=== PATIENT | female | born 1990 | race Two or more races ===

== ENCOUNTER 2018-02-21 23:07 | Emergency (ER) | payer MEDICAID ==
[~2018-02-21] VITALS: Ht 162.6 cm; Wt 104.3 kg
[~2018-02-21 23:07] MED LIST: AURALGAN OTIC1 DROP BOTH EARS; CORTISPORIN EAR10 ML LEFT EAR; NKM
[2018-02-21 23:15] VITALS: BP 139/91
[2018-02-21] MEDS ORDERED: PSEUDOEPHEDRINE60 MG PO (23:38)
[2018-02-21] MEDS ORDERED: BENADRYL25 MG ORAL (23:38)
[2018-02-21] MEDS ORDERED: AMOXICILLIN500 MG ORAL (23:38)
--- NOTE | 2018-02-21 23:38 | Emergency Room Report ---
History of Present Illness General Chief Complaint: Allergic Reaction Source: Patient Present Illness HPI Is a 27-year-old female with a history of anxiety and also idiopathic urticaria. It seemed to be worse when she gets anxious. She presents with chief complaint of allergic reaction. She was complaining of left ear pain and placed on Flonase. His been ongoing for about a day or 2. Now her eyelids were swollen and the right lower lip is slightly swollen. No respiratory complaint. No wheezing. No skin itching. She thinks it may be allergic to Flonase. Allergies: Coded Allergies: No Known Allergies (Unverified , 04/10/14) Patient History Past Medical History: see triage record, old chart reviewed Past Surgical History: none Pertinent Family History: none Social History: Denies: smoking Last Menstrual Period: 02/04/2018 Now: No Immunizations: other Reviewed Nursing Documentation: PMH: Agreed; PSxH: Agreed Nursing Documentation-PMH Past Medical History: No Stated History Review of Systems Eye: Denies: eye pain, blurred vision ENT: Reports: ear pain; Denies: nose congestion, throat swelling Respiratory: Denies: cough, shortness of breath Cardiovascular: Denies: chest pain, palpitations Gastrointestinal: Denies: abdominal pain, diarrhea, nausea, vomiting Musculoskeletal: Denies: back pain, joint pain Skin: Denies: rash Neurological: Denies: headache, numbness Endocrine: Denies: increased thirst, increased urine Hematologic/Lymphatic: Denies: easy bruising All Other Systems: negative except mentioned in HPI Physical Exam Vital Signs Date Time Temp Pulse Resp B/P (MAP) Pulse Ox O2 Delivery O2 Flow Rate FiO2 02/21/18 23:09 98.5 100 16 139/91 98 98.4 02/21/18 23:15 Room Air vitals normal. Sp02 EP Interpretation: reviewed, normal General Appearance: well appearing, no apparent distress, alert Head: normocephalic, atraumatic Eyes: bilateral eye PERRL, bilateral eye EOMI, bilateral eye other - puffiness of lids ENT: hearing grossly normal, normal pharynx, other - mild edema to right lower lip Neck: full range of motion, supple, no meningismus Respiratory: chest non-tender, lungs clear, normal breath sounds Cardiovascular #1: regular rate, rhythm, no murmur Gastrointestinal: normal bowel sounds, non tender, no mass, no organomegaly, no bruit, non-distended Musculoskeletal: back normal, gait/station normal, normal range of motion Psychiatric: mood/affect normal Skin: warm/dry Medical Decision Making Diagnostic Impression: Primary Impression: Urticaria Additional Impression: Otitis media Qualified Codes: H66.002 - Acute suppurative otitis media without spontaneous rupture of ear drum, left ear ER Course Patient has an otitis media. She does have some edema to her eyelids. This could be a viral infection versus her urticaria. No rest or issue. No anaphylaxis. No angioedema of the tongue. I gave her Benadryl here and we'll discharge home with antibiotics. Last Vital Signs Date Time Temp Pulse Resp B/P (MAP) Pulse Ox O2 Delivery O2 Flow Rate FiO2 02/21/18 23:15 98.4 100 16 139/91 98 Room Air 98.4 Status: improved Disposition: HOME, SELF-CARE Condition: Stable Scripts Pseudoephedrine Hcl* (SUDAFED*) 60 Mg Tablet 60 MG PO Q6H, #30 TAB Prov: JUANA KOEHLER M.D. 02/21/18 Amoxicillin* (AMOXIL*) 500 Mg Capsule 500 MG ORAL THREE TIMES A DAY, #21 CAP Prov: JUANA KOEHLER M.D. 02/21/18 Diphenhydramine Hcl* (BENADRYL*) 25 Mg Capsule 50 MG ORAL Q6H PRN for Itching, #30 CAP Prov: JUANA KOEHLER M.D. 02/21/18 Additional Instructions: Follow-up your doctor in 7 days. Return if symptom worsen. JUANA KOEHLER M.D. Feb 21, 2018 23:38
[2018-02-21 23:45] VITALS: BP 139/91
== END 2018-02-21 23:45 | disposition home or self-care (01) ==
LOC: EMR 23:25
DX: L50.9 Urticaria, unspecified (principal); H66.92 Otitis media, unspecified, left ear
CPT/HCPCS: 99284

== ENCOUNTER 2019-08-16 21:00 | Emergency (ER) | payer MEDICAID ==
[~2019-08-16] VITALS: Ht 165.1 cm; Wt 106.6 kg
[~2019-08-16 21:00] MED LIST changes: +AMOXICILLIN500 MG ORAL; +BENADRYL25 MG ORAL; +NAPROXEN500 M2 ORAL; +PSEUDOEPHEDRINE60 MG PO
[2019-08-16 21:06] VITALS: BP 140/79
--- NOTE | 2019-08-16 21:13 | NUR ---
ED Nurse Note: Walk-in patient with complaints of nausea vomitting x 1 day. unknown status. Patient voided and urine collected. Will continue to monitor.
[2019-08-16 22:26] LABS: BILIRUBIN, URINE NEGATIVE (NEGATIVE); COLOR,URINE PALE YELLOW; GLUCOSE, URINE (UA) NEGATIVE (NEGATIVE); KETONES,URINE 1+ (NEGATIVE); LEUKOCYTE ESTERASE ,URINE NEGATIVE (NEGATIVE); NITRITE,URINE NEGATIVE (NEGATIVE); PH,URINE 7 (4.5-8.0); PROTEIN,URINE NEGATIVE (NEGATIVE); UROBILINOGEN,URINE NORMAL MG/DL (0.0-1.0)
[2019-08-16] MEDS ORDERED: ONDANSETRON ODT4 MG BC (22:30)
[2019-08-16 22:31] LABS: APPEARANCE,URINE CLEAR
--- NOTE | 2019-08-16 22:31 | Emergency Room Report ---
History of Present Illness General Chief Complaint: Nausea, Vomiting, and Diarrhea Source: Patient Present Illness [facility] This is a 29-year-old female with no past medical history she presents with complaint of nausea and vomiting. It intermittently for last 2 days. Her last menstruation was June 19. She has irregular menstruation. No abdominal pain or vaginal bleeding. No urinary complaint. She is sexually active and unprotected sex. Never been before. Allergies: Coded Allergies: No Known Allergies (Unverified , 04/10/14) Patient History Past Medical History: see triage record, old chart reviewed Past Surgical History: none Pertinent Family History: none Social History: Denies: smoking Last Menstrual Period: 06/23/19 : 0 Para: 0 Immunizations: other Reviewed Nursing Documentation: PMH: Agreed; PSxH: Agreed Nursing Documentation-PMH Past Medical History: No Stated History Hx Cardiac Problems: No Hx Hypertension: No Hx Pacemaker: No Hx Asthma: No Hx COPD: No Hx Diabetes: No Hx Cancer: No Hx Gastrointestinal Problems: No Hx Dialysis: No History Of Psychiatric Problem: No Hx Neurological Problems: No Hx Cerebrovascular Accident: No Hx Seizures: No Review of Systems Eye: Denies: eye pain, blurred vision ENT: Denies: ear pain, nose congestion, throat swelling Respiratory: Denies: cough, shortness of breath Cardiovascular: Denies: chest pain, palpitations Gastrointestinal: Reports: nausea, vomiting; Denies: abdominal pain, diarrhea Musculoskeletal: Denies: back pain, joint pain Skin: Denies: rash Neurological: Denies: headache, numbness Endocrine: Denies: increased thirst, increased urine Hematologic/Lymphatic: Denies: easy bruising All Other Systems: negative except mentioned in HPI Physical Exam Vital Signs Date Time Temp Pulse Resp B/P (MAP) Pulse Ox O2 Delivery O2 Flow Rate FiO2 08/16/19 21:05 98.8 114 20 140/79 (99) 97 Room Air Vitals unremarkable Sp02 EP Interpretation: reviewed, normal General Appearance: well appearing, no apparent distress, alert Head: normocephalic, atraumatic Eyes: bilateral eye PERRL, bilateral eye EOMI ENT: hearing grossly normal, normal pharynx Neck: full range of motion, supple, no meningismus Respiratory: chest non-tender, lungs clear, normal breath sounds Cardiovascular #1: regular rate, rhythm, no murmur Gastrointestinal: normal bowel sounds, non tender, no mass, no organomegaly, no bruit, non-distended Musculoskeletal: back normal, normal range of motion, gait/station normal Psychiatric: mood/affect normal Medical Decision Making Diagnostic Impression: Primary Impression: Qualified Codes: Z3A.08 - 8 weeks gestation of ER Course Patient presents with occasional nausea and vomiting from . Patient had dates she is about 8 weeks. She does not plan on keeping this . She has no pain no bleeding to warrant an emergent ultrasound. Will discharge home with follow-up with [facility]. Last Vital Signs Date Time Temp Pulse Resp B/P (MAP) Pulse Ox O2 Delivery O2 Flow Rate FiO2 08/16/19 21:06 98.8 79 20 140/79 97 Room Air Status: improved Disposition: HOME, SELF-CARE Condition: Stable Scripts Ondansetron Odt* (ZOFRAN ODT*) 4 Mg Tab.rapdis 4 MG BC EVERY 6 HOURS PRN for Nausea & Vomiting, #30 TAB 0 Refills Prov: Truman Brown MD 08/16/19 Referrals: [facility] (PCP) Additional Instructions: Follow-up with your doctor in 7 days. You can also follow-up with [facility]. Return for abdominal pain or vaginal bleeding. Return if symptoms worsen. Truman Brown MD Aug 16, 2019 22:31
[2019-08-16 22:40] VITALS: BP 140/79
--- NOTE | 2019-08-16 22:40 | NUR ---
ED Nurse Note: Patient cleared for discharge by ERMD. Patient departed with all belongings.
== END 2019-08-16 22:40 | disposition home or self-care (01) ==
LOC: EMR 21:40
DX: O21.9 Vomiting of pregnancy, unspecified (principal); Z3A.08 8 weeks gestation of pregnancy
CPT/HCPCS: 81003; 81025; Z7502; 99282

== ENCOUNTER 2019-11-09 12:35 | Emergency (ER) | payer MEDICAID ==
[~2019-11-09] VITALS: Ht 165.1 cm; Wt 110.7 kg
[~2019-11-09 12:35] MED LIST changes: +ONDANSETRON ODT4 MG BC
--- NOTE | 2019-11-09 12:50 | NUR ---
ED Nurse Note: patient walked into ED from home, states patient is 20 weeks , this is her first . patient c/p sharp pain on the lower abdomen as well as back pain, vaginal spotting intermittently since 10/31/19. patient also reports coughing as well. patient is alert awake x4 ambulatory steady gait, breathing unlabored and even, speaking in full sentences. patient on a hospital gown.
[2019-11-09 13:10] LABS: APPEARANCE,URINE CLEAR; BILIRUBIN, URINE NEGATIVE (NEGATIVE); COLOR,URINE PALE YELLOW; GLUCOSE, URINE (UA) 2+ (NEGATIVE); KETONES,URINE NEGATIVE (NEGATIVE); LEUKOCYTE ESTERASE ,URINE NEGATIVE (NEGATIVE); NITRITE,URINE POSITIVE (NEGATIVE); PH,URINE 6 (4.5-8.0); PROTEIN,URINE NEGATIVE (NEGATIVE); UROBILINOGEN,URINE NORMAL MG/DL (0.0-1.0)
--- NOTE | 2019-11-09 13:15 | NUR ---
ED Nurse Note: patient taken to U/S
[2019-11-09 13:46] LABS: HEMATOCRIT 38.1 % (37.0-47.0); HEMOGLOBIN 13.2 G/DL (12.0-16.0); MEAN CORPUSCULAR VOLUME 87 FL (80-99); PLATELET COUNT 272 K/UL (150-450); RED BLOOD COUNT 4.38 M/UL (4.20-5.40); RED CELL DISTRIBUTION WIDTH 11.3 % (11.6-14.8); WHITE BLOOD COUNT 11.5 K/UL (4.8-10.8)
[2019-11-09 13:56] LABS: ANION GAP 14 mmol/L (5-15); BLOOD UREA NITROGEN 6 mg/dL (7-18); CALCIUM 9.2 MG/DL (8.5-10.1); CARBON DIOXIDE 23 MMOL/L (21-32); CHLORIDE 101 MMOL/L (98-107); CREATININE 0.5 MG/DL (0.55-1.30); POTASSIUM 3.2 MMOL/L (3.5-5.1); SODIUM 137 MMOL/L (136-145)
[2019-11-09 14:00] LABS: ALANINE AMINOTRANSFERASE 27 U/L (12-78); ALBUMIN 3.1 G/DL (3.4-5.0); ALBUMIN/GLOBULIN RATIO 0.8 (1.0-2.7); ALKALINE PHOSPHATASE 78 U/L (46-116); ASPARTATE AMINO TRANSFERASE 21 U/L (15-37); BILIRUBIN,TOTAL 0.2 MG/DL (0.2-1.0)
--- NOTE | 2019-11-09 14:35 | Emergency Room Report ---
History of Present Illness General Chief Complaint: Complications Source: Patient Present Illness HPI 29-year-old female G1, P0 who reports being 20 weeks and morbidly obese , here complaining of 1 week of suprapubic pain and cramping as well as few episodes of vaginal spotting. Denies any vaginal clotting, urinary frequency and urgency. Denies fever and chills, syncope, chest pain shortness of breath. Has not taken medication for symptom relief. Last CHEMISTRY TEACHER visit was 10 days ago and within normal limits. Denies tobacco smoke, drug use alcohol intake. Denies recent travel. Denies leg swelling and calf tenderness. Denies pleuritic chest pain. Reports that she also has been having this cough for the past week on and off. Denies recent travel, fever and chills. Allergies: Coded Allergies: No Known Allergies (Unverified , 04/10/14) Patient History Past Medical History: see triage record Past Surgical History: none Pertinent Family History: none Now: Yes - 20 weeks Immunizations: UTD Reviewed Nursing Documentation: PMH: Agreed; PSxH: Agreed Nursing Documentation-PMH Past Medical History: No Stated History Hx Cardiac Problems: No Hx Hypertension: No Hx Pacemaker: No Hx Asthma: No Hx COPD: No Hx Diabetes: No Hx Cancer: No Hx Gastrointestinal Problems: No Hx Dialysis: No Hx Neurological Problems: No Hx Cerebrovascular Accident: No Hx Seizures: No Review of Systems All Other Systems: negative except mentioned in HPI Physical Exam Vital Signs Date Time Temp Pulse Resp B/P (MAP) Pulse Ox O2 Delivery O2 Flow Rate FiO2 11/09/19 12:43 99.5 128 22 149/91 (110) 94 Room Air Sp02 EP Interpretation: reviewed, normal General Appearance: alert, GCS 15, non-toxic, obese Head: normocephalic, atraumatic Eyes: bilateral eye normal inspection, bilateral eye PERRL ENT: hearing grossly normal, normal pharynx, no angioedema, normal voice Neck: full range of motion, supple, no bony tend, supple/symm/no masses Respiratory: chest non-tender, lungs clear, normal breath sounds, no rhonchi, no retraction, no wheezing, speaking full sentences Cardiovascular #1: regular rate, rhythm, no edema Gastrointestinal: soft, no mass, no organomegaly, no peritonitis, no bruit, no guarding, no hernia, no pulsatile mass Rectal: deferred Genitourinary: no CVA tenderness, ext genitalia/vag normal, os closed Musculoskeletal: back normal, no calf tenderness, pelvis stable, Laila's Sign negative Neurologic: alert, motor strength/tone normal, oriented x3, sensory intact, responsive, speech normal Psychiatric: judgement/insight normal, memory normal, mood/affect normal, no suicidal/homicidal ideation Skin: no rash, palpation normal, normal color, warm/dry Lymphatic: no adenopathy Medical Decision Making PA Attestation All my diagnosis and treatment plans were reviewed ad discussed with my supervising physician Dr. Carvajal Diagnostic Impression: Primary Impression: Abdominal pain during Additional Impression: UTI (urinary tract infection) during ER Course 29-year-old female G1, P0 who reports being 20 weeks and morbidly obese , here complaining of 1 week of suprapubic pain and cramping as well as few episodes of vaginal spotting. Denies any vaginal clotting, urinary frequency and urgency. Denies fever and chills, syncope, chest pain shortness of breath. Has not taken medication for symptom relief. Last CHEMISTRY TEACHER visit was 10 days ago and within normal limits. Denies tobacco smoke, drug use alcohol intake. Denies recent travel. Denies leg swelling and calf tenderness. Denies pleuritic chest pain. Reports that she also has been having this cough for the past week on and off. Denies recent travel, fever and chills. Ddx considered but are not limited to: UTI, pyelonephritis, urinary incontinence , prolapsed bladder, ectopic , term , abdominal pain during Vital signs: are WNL, pt. is afebrile H&PE are most consistent with: Abdominal pain during , UTI during ORDERS: UA, urine cx, CBC, CMP, type and screen, beta-hCG, OB ultrasound, Keflex ED INTERVENTIONS: NS bolus, Zofran, Tylenol DISCHARGE: At this time pt. is stable for d/c to home. Will provide printed patient care instructions, and any necessary prescriptions. Care plan and follow up instructions have been discussed with the patient prior to discharge. Patient to follow-up with CHEMISTRY TEACHER in the next 24 to 48 hours, take medication as directed, if vaginal bleeding spotting return to the emergency room. CT/MRI/US Diagnostic Results CT/MRI/US Diagnostic Results : Imaging Test Ordered: OB ultrasound Impression Heart rate 171, IUP visualized, no subchorionic hemorrhage, no free fluid Last Vital Signs Date Time Temp Pulse Resp B/P (MAP) Pulse Ox O2 Delivery O2 Flow Rate FiO2 11/09/19 14:29 99.5 11/09/19 12:43 128 22 149/91 (110) 94 Room Air Status: improved Disposition: HOME, SELF-CARE Condition: Stable Scripts Cephalexin* (KEFLEX*) 500 Mg Capsule 500 MG ORAL EVERY 6 HOURS for 7 Days, #28 CAP Prov: Krystin Whelan 11/09/19 Patient Instructions: Abdominal Pain During , [id number], Urinary Tract Infection, [id number] Additional Instructions: Take medication as directed, follow-up with your CHEMISTRY TEACHER in 24 to 72 hours, if worsening abdominal pain, vaginal bleeding or spotting return to the emergency room. Krystin Whelan Nov 09, 2019 14:35
[2019-11-09] MEDS ORDERED: CEPHALEXIN500 MG ORAL (14:36)
[2019-11-09 14:47] VITALS: BP 142/82
--- NOTE | 2019-11-09 14:48 | Diagnostic Imaging Report ---
Indication: Pelvic pain and vaginal spotting, patient Technique: Grayscale and duplex images of the uterus and fetus with transabdominal and transvaginal scanner Comparison: none Findings: There is a single live intrauterine . Position is transverse. Positive heart activity, heart rate 171 bpm. There is an anterior fundal placenta, which clears the internal cervical os.. Cervix is closed, endocervical canal measures 5.4 cm in length. Amniotic fluid index is 10.2 cm Estimated gestational age by average of ultrasound measurements is 21 weeks 6 days. Estimated gestational age by dates is 19 weeks 5 days. Estimated date of delivery 03/15/2020. Due to early stage of , emergent nature of exam, as detailed assessment of anatomy not performed. Grossly normal spine, urinary bladder, stomach, cord insertion Impression: 21 weeks 6 day, by average of ultrasound measurements, single live intrauterine . No unusual features
--- NOTE | 2019-11-09 14:48 | NUR ---
ER DISCHARGE NOTE: Patient is cleared to be discharged per LYN SAUL, pt is aox4, on room air, with stable vital signs. pt was given dc and prescription instructions, pt was able to verbalize understanding, pt id band and iv site removed without complications. pt is able to ambulate with steady gait. pt took all belongings.
== END 2019-11-09 14:51 | disposition home or self-care (01) ==
LOC: EMR 14:32
DX: O23.42 Unspecified infection of urinary tract in pregnancy, second trimester (principal); O26.892 Other specified pregnancy related conditions, second trimester; R10.30 Lower abdominal pain, unspecified; O99.212 Obesity complicating pregnancy, second trimester; E66.01 Morbid (severe) obesity due to excess calories; Z3A.20 20 weeks gestation of pregnancy
CPT/HCPCS: 36415; 76805; 76817; 80053; 81003; 84702; 85007; 85025; 86850; 86900; 86901; 96361; 96374; J2405; J7030; Z7502; 99284

== ENCOUNTER 2019-11-11 21:10 | Emergency (ER) | payer MEDICAID ==
[~2019-11-11] VITALS: Ht 165.1 cm; Wt 110.7 kg
[~2019-11-11 21:10] MED LIST changes: +CEPHALEXIN500 MG ORAL
[2019-11-11] MEDS ORDERED: MICONAZOLE 3 K1 EACH VG (21:40)
--- NOTE | 2019-11-11 21:40 | NUR ---
ED Nurse Note: Patient presented to ER c/o vagina swelling and itching and burning upon urination x 2 days. Patient was seen and treated here at [facility] [place], prescribed keflex 500 mg 2 days ago. AAO x4, VSS at this time.Patient is 20 weeks preagnant.
--- NOTE | 2019-11-11 21:41 | Emergency Room Report ---
History of Present Illness General Chief Complaint: Female Urogenital Problems Source: Patient Present Illness HPI This is a 29-year-old female who is 20 weeks . She presents with chief complaint of vaginal itching and slight swelling ever since starting antibiotics. She was here 2 to 3 days ago. She had some vaginal spotting and had ultrasound it was unremarkable. She was told that she has urinary tract infection prescribed Keflex. After taking the Keflex she started having the symptoms. No fever chills but no nausea no vomiting. No dysuria frequency. Worse with urination. Slight whitish discharge. No bleeding. Has not take anything else for this. Allergies: Coded Allergies: No Known Allergies (Unverified , 04/10/14) Patient History Past Medical History: see triage record, old chart reviewed Past Surgical History: other Pertinent Family History: none Social History: Denies: smoking Now: Yes : 1 Immunizations: other Reviewed Nursing Documentation: PMH: Agreed; PSxH: Agreed Nursing Documentation-PMH Past Medical History: No Stated History Hx Cardiac Problems: No Hx Hypertension: No Hx Pacemaker: No Hx Asthma: No Hx COPD: No Hx Diabetes: No Hx Cancer: No Hx Gastrointestinal Problems: No Hx Dialysis: No Hx Neurological Problems: No Hx Cerebrovascular Accident: No Hx Seizures: No Review of Systems Eye: Denies: eye pain, blurred vision ENT: Denies: ear pain, nose congestion, throat swelling Respiratory: Denies: cough, shortness of breath Cardiovascular: Denies: chest pain, palpitations Gastrointestinal: Denies: abdominal pain, diarrhea, nausea, vomiting Genitourinary: Reports: discharge, pain Musculoskeletal: Denies: back pain, joint pain Skin: Denies: rash Neurological: Denies: headache, numbness Endocrine: Denies: increased thirst, increased urine Hematologic/Lymphatic: Denies: easy bruising All Other Systems: negative except mentioned in HPI Physical Exam Vital Signs Date Time Temp Pulse Resp B/P (MAP) Pulse Ox O2 Delivery O2 Flow Rate FiO2 11/11/19 21:21 97.5 100 18 106/72 (83) 95 Room Air Vitals normal. Sp02 EP Interpretation: reviewed, normal General Appearance: well appearing, no apparent distress, alert Head: normocephalic, atraumatic Eyes: bilateral eye PERRL, bilateral eye EOMI ENT: hearing grossly normal, normal pharynx Neck: full range of motion, supple, no meningismus Respiratory: chest non-tender, lungs clear, normal breath sounds Cardiovascular #1: regular rate, rhythm, no murmur Gastrointestinal: normal bowel sounds, non tender, no mass, no organomegaly, no bruit, non-distended, other - Gravid Musculoskeletal: back normal, normal range of motion, gait/station normal Psychiatric: mood/affect normal Medical Decision Making Diagnostic Impression: Primary Impression: Vaginitis affecting in second trimester, antepartum ER Course This patient presents with symptom of vaginitis. Most likely candidal since she has been taking antibiotics. No evidence of any bleeding. No evidence of any STDs. Will discharge home. Last Vital Signs Date Time Temp Pulse Resp B/P (MAP) Pulse Ox O2 Delivery O2 Flow Rate FiO2 11/11/19 21:21 97.5 100 18 106/72 (83) 95 Room Air Status: unchanged Disposition: HOME, SELF-CARE Condition: Stable Scripts Miconazole/Skin Cleanser No.17 (Miconazole 3 Kit) 1 Each Kit 1 EACH VG DAILY, #1 KIT Prov: Truman Brown MD 11/11/19 Patient Instructions: Vaginal Yeast Infection, Adult Additional Instructions: You can stop the antibiotics. Follow-up with in 7 days. return if symptoms worsen. Truman Brown MD Nov 11, 2019 21:41
[2019-11-11 21:48] VITALS: BP 106/72
[2019-11-11 21:52] VITALS: BP 106/72
--- NOTE | 2019-11-11 21:52 | NUR ---
ED Nurse Note: Pt cleared by health care Provider for discharge. DC instructions/prescription was given and explained to pt and verbalized understanding of teachings. All medical deviecs such as ID band removed. Pt is AAO x4, ambulatory and left with all personal belongings.
== END 2019-11-11 21:52 | disposition home or self-care (01) ==
LOC: EMR 21:50
DX: O23.592 Infection of other part of genital tract in pregnancy, second trimester (principal); Z3A.20 20 weeks gestation of pregnancy; N76.0 Acute vaginitis
CPT/HCPCS: 99281

== ENCOUNTER 2019-11-13 22:10 | Emergency (ER) | payer MEDICAID ==
[~2019-11-13] VITALS: Ht 165.1 cm; Wt 110.7 kg
[~2019-11-13 22:10] MED LIST changes: +MICONAZOLE 3 K1 EACH VG
--- NOTE | 2019-11-13 22:22 | NUR ---
ED Nurse Note: Walk-in patient with complaints of cough x 1 week and left ear plugged with pain.
[2019-11-13 22:23] VITALS: BP 117/78
--- NOTE | 2019-11-13 22:53 | NUR ---
ED Nurse Note: Patient ambulated to the restroom.
[2019-11-13] MEDS ORDERED: ZITHROMAX250 MG ORAL (23:05)
[2019-11-13 23:12] VITALS: BP 117/78
--- NOTE | 2019-11-13 23:12 | NUR ---
ER DISCHARGE NOTE: Patient is cleared to be discharged per ERMD, pt is aox4, on room air, with stable vital signs. pt was given dc and prescription instructions, pt was able to verbalize understanding, pt id band removed without complications. pt is able to ambulate with steady gait. pt took all belongings.
--- NOTE | 2019-11-14 01:52 | Emergency Room Report ---
History of Present Illness General Chief Complaint: Earache Present Illness HPI Patient is a 29-year-old female presents after increased sore throat and cough. She had gradual onset of symptoms. She had associated right-sided earache. She recently been amoxicillin. She had worsening pain to the right ear as well as increasing right ear fullness. Denies any dizziness or lightheadedness. She reports being a 22 weeks . She reports having normal movement. Denies any vaginal bleeding or discharge. She denies leaking fluid. G1, P0 Allergies: Coded Allergies: No Known Allergies (Unverified , 04/10/14) Patient History Past Medical History: see triage record Last Menstrual Period: 06/24/2019 Reviewed Nursing Documentation: PMH: Agreed; PSxH: Agreed Nursing Documentation-PMH Hx Cardiac Problems: No Hx Hypertension: No Hx Pacemaker: No Hx Asthma: No Hx COPD: No Hx Diabetes: No Hx Cancer: No Hx Gastrointestinal Problems: No Hx Dialysis: No Hx Neurological Problems: No Hx Cerebrovascular Accident: No Hx Seizures: No Review of Systems All Other Systems: negative except mentioned in HPI Physical Exam Vital Signs Date Time Temp Pulse Resp B/P (MAP) Pulse Ox O2 Delivery O2 Flow Rate FiO2 11/13/19 22:17 97.5 97 16 117/78 (91) 97 Room Air General Appearance: well appearing, no apparent distress, alert, GCS 15 Head: normocephalic, atraumatic ENT: hearing grossly normal, normal voice Neck: full range of motion, supple Respiratory: normal inspection, chest non-tender, lungs clear, no respiratory distress, speaking full sentences Cardiovascular #1: normal inspection Gastrointestinal: normal inspection, normal bowel sounds, non tender, soft Musculoskeletal: normal inspection, no calf tenderness Neurologic: alert, motor strength/tone normal, 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 Differential diagnosis included was not limited to otitis media, malignant otitis externa, foreign body, cellulitis, mastoiditis, carotid dissection, myocardial infarction among others. Patient appears to have otitis media. She will be given prescription for azithromycin due to possible bullous myringitis. Patient was advised to follow up with primary care physician for recheck. Patient to return if worse. Patient advised to follow-up with her METAL S[facility]TER regarding her . Last Vital Signs Date Time Temp Pulse Resp B/P (MAP) Pulse Ox O2 Delivery O2 Flow Rate FiO2 11/13/19 23:12 97.5 79 16 117/78 97 Room Air Status: improved Disposition: HOME, SELF-CARE Condition: Stable Scripts Azithromycin* (ZITHROMAX*) 250 Mg Tablet 250 MG ORAL DAILY, #6 TAB 0 Refills Take two tables once daily for 1 day, then one tablet once daily for 4 days. Prov: Deepak Corona MD 11/13/19 Referrals: [facility] (PCP) Patient Instructions: Otitis Media, Adult Additional Instructions: Follow up with your global logistics manager for recheck of . Return if worse. Deepak Corona MD Nov 14, 2019 01:52
== END 2019-11-13 23:12 | disposition home or self-care (01) ==
LOC: EMR 23:11
DX: O98.812 Other maternal infectious and parasitic diseases complicating pregnancy, second trimester (principal); H66.91 Otitis media, unspecified, right ear; Z3A.22 22 weeks gestation of pregnancy
CPT/HCPCS: 99282

== ENCOUNTER 2020-01-17 14:32 | Emergency (ER) | payer MEDICAID ==
[~2020-01-17] VITALS: Ht 165.1 cm; Wt 113.4 kg
[~2020-01-17 14:32] MED LIST changes: +ZITHROMAX250 MG ORAL
--- NOTE | 2020-01-17 14:43 | NUR ---
ED Nurse Note: Pt walked in from home d/t possible left shoulder dislocation. 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 Pt reports moving her left arm and hearing a "popping sound" ten minutes before arrival. Pt denies fall. Pt is 33 weeks . Respirations even and unlabored on room air. Vitals stable as documented.
[2020-01-17 14:46] VITALS: BP 128/86
[2020-01-17] MEDS ORDERED: TYLENOL325 MG ORAL (14:50)
--- NOTE | 2020-01-17 14:50 | Emergency Room Report ---
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 she states she was reaching up trying to put her jacket on felt her shoulder pop severity is mild, sharp in nature aggravated with movement alleviated with rest severity is mild patient presents for evaluation and treatment Allergies: Coded Allergies: No Known Allergies (Unverified , 04/10/14) COVID-19 Screening Contact w/high risk pt: No Recent Travel to affected area: No Experienced COVID-19 symptoms?: No Patient History Past Medical History: see triage record Now: Yes - 33 weeks Reviewed Nursing Documentation: PMH: Agreed; PSxH: Agreed Nursing Documentation-PMH Past Medical History: No History, Except For Hx Cardiac Problems: No Hx Hypertension: No Hx Pacemaker: No Hx Asthma: No Hx COPD: No Hx Diabetes: No Hx Cancer: No Hx Gastrointestinal Problems: No Hx Dialysis: No Hx Neurological Problems: No - shoulder dislocation. Hx Cerebrovascular Accident: No Hx Seizures: No Review of Systems All Other Systems: negative except mentioned in HPI Physical Exam Vital Signs Date Time Temp Pulse Resp B/P (MAP) Pulse Ox O2 Delivery O2 Flow Rate FiO2 01/17/20 14:35 98.4 109 20 128/86 (100) 96 Room Air General Appearance: well appearing, no apparent distress Head: normocephalic, atraumatic ENT: hearing grossly normal, normal voice Neck: full range of motion, supple Respiratory: no respiratory distress, speaking full sentences Musculoskeletal: other - Left shoulder: Palpable deformity noted, empty socket , 2+ radial pulse radial median ulnar nerve intact, there is still sensation at the deltoid Neurologic: alert, normal gait Psychiatric: mood/affect normal Skin: no rash Procedures Additional Procedure Procedure Narrative Bloom technique was conducted patient shoulder was spontaneously reduced sensation and neurovascular exam is completely intact afterwards Medical Decision Making Diagnostic Impression: Primary Impression: Shoulder dislocation Qualified Codes: S43.005A - Unspecified dislocation of left shoulder joint, initial encounter ER Course 29-year-old female presents with dislocated shoulder, Bloom technique was employed patient shoulder was reduced Abdomen was shielded because she is currently Patient placed in sling and swath Postprocedural x-ray shows reduced shoulder patient was discharged home with return precautions follow-up with PCP Other X-Ray Diagnostic Results Other X-Ray Diagnostic Results : X-Ray ordered: Left shoulder # of Views/Limited Vs Complete: 2 View Indication: Pain EP Interpretation: Yes Interpretation: no dislocation, no fractures Impression: No acute disease Electronically Signed by: Tesfaye Castillo MD Last Vital Signs Date Time Temp Pulse Resp B/P (MAP) Pulse Ox O2 Delivery O2 Flow Rate FiO2 01/17/20 14:35 98.4 109 20 128/86 (100) 96 Room Air Disposition: HOME, SELF-CARE Condition: Stable Scripts Acetaminophen (Tylenol) 325 Mg Tablet 650 MG ORAL Q6H PRN for Prn Pain/Headache/Temp > 101, #30 TAB 0 Refills Prov: Tesfaye Castillo MD 01/17/20 Referrals: [facility] Patient Instructions: Shoulder Dislocation, [id number] Additional Instructions: The patient was provided with discharge instructions, notified to follow-up with a primary care doctor and or specialist in the next 24-48 hours, and to return to the ED if they have worsening of their symptoms. Please note that this report is being documented using [employer] technology. This can lead to erroneous entry secondary to incorrect interpretation by the dictating instrument. Tesfaye Castillo MD Jan 17, 2020 14:50
--- NOTE | 2020-01-17 14:58 | NUR ---
ED Nurse Note: xray @ bedside
[2020-01-17 15:08] VITALS: BP 131/88
--- NOTE | 2020-01-17 15:08 | NUR ---
ER DISCHARGE NOTE: Pt's arm put in a sling. Patient is cleared to be discharged per ERMD, pt is aox4, on room air, with stable vital signs as documented. pt was given dc and prescription instructions and was able to verbalize understanding, pt id band removed. pt is able to ambulate with steady gait. pt took all belongings.
--- NOTE | 2020-01-17 16:29 | Diagnostic Imaging Report ---
Indication: Reason For Exam: PAIN Technique: 2 views of the left shoulder Comparison: none Findings: Exam is somewhat limited due to the availability of only 2 images. No acute fractures. No dislocations. Joint spaces are preserved. Impression: Somewhat limited exam. No definite acute bony trauma
== END 2020-01-17 15:08 | disposition home or self-care (01) ==
LOC: EMR 14:45
DX: S43.005A Unspecified dislocation of left shoulder joint, initial encounter (principal); X58.XXXA Exposure to other specified factors, initial encounter; Y92.9 Unspecified place or not applicable; O26.93 Pregnancy related conditions, unspecified, third trimester; Z3A.33 33 weeks gestation of pregnancy
CPT/HCPCS: 23650; 73020; Z7502; 99283

== ENCOUNTER 2020-10-04 12:12 | Emergency (ER) | payer MEDICAID ==
[~2020-10-04] VITALS: Ht 165.1 cm; Wt 99.8 kg
[~2020-10-04 12:12] MED LIST changes: +TYLENOL325 MG ORAL
[2020-10-04 12:22] VITALS: BP 136/107
--- NOTE | 2020-10-04 12:22 | NUR ---
ED Nurse Note: PT. AAOX4. AMBULATORY. PT. WALKED IKN TO ER STATING SHE WOKE UP THIS MORNING WITH L-SHOULDER PAIN. PT. STATED SHE ROLLED IN TO THEBED THE WRONG WAY. PT.STATED SHE HAD THIS HAPPENED TO HER TWICE. NO S/S OF ACUTE RESP DISTRESS NOTED
--- NOTE | 2020-10-04 12:35 | NUR ---
ED Nurse Note: DR. THOMPSON AT THE BEDSIDE
--- NOTE | 2020-10-04 12:38 | Emergency Room Report ---
History of Present Illness General Chief Complaint: Upper Extremity Injury Source: Patient Present Illness HPI The patient was laying on her left shoulder. She reached her arm forward and exerted herself and her shoulder dislocated. This is happened in the past. It is painful. She denies any numbness. She rates the pain 8/10 at this time and aching. It is worse when she tries to move her left arm. She has a 7-month-old at home and has been using her left arm to hold the baby. The patient denies exposure to Covid positive contacts. There are no fevers or chills. She denies shortness of breath. There is no productive cough. She denies nausea, vomiting or diarrhea. She is status post hysterectomy. She denies dysuria. She denies any headache. There is no depression. 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 Hx Cerebrovascular Accident: No Hx Seizures: No Review of Systems All Other Systems: negative except mentioned in HPI Physical Exam Vital Signs Date Time Temp Pulse Resp B/P (MAP) Pulse Ox O2 Delivery O2 Flow Rate FiO2 10/04/20 12:22 98.4 99 18 136/107 (117) 97 Room Air Sp02 EP Interpretation: reviewed, normal General Appearance: well appearing, no apparent distress, GCS 15 Head: normocephalic Eyes: bilateral eye normal inspection, bilateral eye PERRL ENT: moist mucus membranes Neck: full range of motion, supple Respiratory: normal inspection Cardiovascular #1: regular rate, rhythm Cardiovascular #2: 2+ radial (L) - Good capillary fill Gastrointestinal: normal inspection, overweight Musculoskeletal: gait/station normal, tenderness - Left shoulder with dimpling and holding her arm close to her chest with her right hand Neurologic: alert, distal neuro normal, grossly normal Psychiatric: mood/affect normal Skin: normal color, no rash, warm/dry Procedures Joint Reduction Joint Reduction : Consent: Verbal Joint Reduction Site: shoulder (L) Procedural Sedation: No Reduction Attempts: One Pre-Procedure NV Exam: Yes Post-Procedure NV Exam: Yes Post Joint Reduction Film: joint reduced Patient Tolerated: Well Complications: None Progress The patient's arm was abducted and flexed with external rotation at the elbow. The shoulder was reduced easily without analgesia or conscious sedation. Patient tolerated procedure well. Medical Decision Making Diagnostic Impression: Primary Impression: Shoulder dislocation Qualified Codes: S43.005A - Unspecified dislocation of left shoulder joint, initial encounter ER Course Patient presents with alleged left shoulder dislocation. Based on her physical exam this is present. She states that this can be reduced without analgesia or procedural sedation. Repeat neurovascular exam is normal. In addition the patient is given a dose of Motrin. The shoulder was reduced see procedure note. Postreduction film shows no fracture. A sling was applied by the nurse. Position excellent. Distal neurovascular checked by me and normal. No deltoid sensory deficit. Discussed findings with patient and treatment plan with avoidance of hyperextending the shoulder or placing medial pressure on it. I suggested outpatient follow-up with an sales recruitment specialist. Patient stable for outpatient observation and treatment. Other X-Ray Diagnostic Results Other X-Ray Diagnostic Results : X-Ray ordered: Postreduction film left shoulder # of Views/Limited Vs Complete: 3 View Indication: Pain EP Interpretation: Yes Interpretation: no dislocation, no soft tissue swelling, no fractures Impression: No acute disease Electronically Signed by: Electronically signed by Jorge Luis Aguilar MD Last Vital Signs Date Time Temp Pulse Resp B/P (MAP) Pulse Ox O2 Delivery O2 Flow Rate FiO2 10/04/20 13:06 98.1 87 20 125/90 99 Room Air Status: improved Disposition: HOME, SELF-CARE Condition: Improved Scripts Ibuprofen* (MOTRIN*) 600 Mg Tablet 600 MG ORAL Q6H PRN for FOR PAIN, #20 TAB 0 Refills Prov: Jorge Luis Aguilar MD 10/04/20 Jorge Luis Aguilar MD Oct 04, 2020 12:38
--- NOTE | 2020-10-04 12:38 | NUR ---
ED Nurse Note: APPEALS BOARD REFEREE AT THE BEDSIDE
[2020-10-04] MEDS ORDERED: IBUPROFEN600 M1 ORAL (13:01)
[2020-10-04 13:06] VITALS: BP 125/90
--- NOTE | 2020-10-04 13:06 | NUR ---
ER DISCHARGE NOTE: Patient is cleared to be discharged per ERMD, pt is aox4, on room air, with stable vital signs. pt was given dc and prescription instructions, pt was able to verbalize understanding, pt id band removed. pt is able to ambulate with steady gait. pt took all belongings.
--- NOTE | 2020-10-04 13:15 | Diagnostic Imaging Report ---
EXAM: XR Left Shoulder Complete, 2 or More Views CLINICAL HISTORY: POST-OP TECHNIQUE: Two or more views of the left shoulder. COMPARISON: Left shoulder radiographs on 01/17/2020 FINDINGS: Bones/joints: No displaced fracture or dislocation identified. Joint space is maintained. No bony lesion. Soft tissues: Normal. IMPRESSION: No displaced fracture or dislocation identified.
== END 2020-10-04 13:06 | disposition home or self-care (01) ==
LOC: EMR 12:48
DX: S43.005A Unspecified dislocation of left shoulder joint, initial encounter (principal); X50.1XXA Overexertion from prolonged static or awkward postures, initial encounter; Y93.9 Activity, unspecified; Y92.9 Unspecified place or not applicable; Z90.710 Acquired absence of both cervix and uterus
CPT/HCPCS: 23650; 73030; Z7502; 99283

== ENCOUNTER 2020-10-13 23:44 | Emergency (ER) | payer BC, MEDICAID ==
[~2020-10-13] VITALS: Ht 165.1 cm; Wt 104.3 kg
[~2020-10-13 23:44] MED LIST changes: +IBUPROFEN600 M1 ORAL
[2020-10-13 23:50] VITALS: BP 144/83
--- NOTE | 2020-10-13 23:50 | NUR ---
ED Nurse Note: PAtient walked into ED c/o left upper arm pain onset for the past 30 minutes now, patient reports of falling down due to an open oven door, denies any LOC.
--- NOTE | 2020-10-13 23:55 | NUR ---
ED Nurse Note: Patient reports of being seen here last week for a shoulder dislocation, patient is able to move hands however unable to move shoulder. will continue to monitor
--- NOTE | 2020-10-14 00:05 | Emergency Room Report ---
History of Present Illness General Chief Complaint: Upper Extremity Injury Source: Patient Present Illness HPI Disclaimer: Please note that this report is being documented using [employer] technology. This can lead to erroneous entry secondary to incorrect interpretation by the dictating instrument. HPI: 30-year-old [id number] female presents for evaluation of left shoulder pain. Patient was in her kitchen and excellently tripped over an open oven door falling forward onto her left side. Prior history of dislocation in the left shoulder treated nonoperatively. Denies pain in the elbow, forearm wrist or digits. Able to move all digits. Denies numbness or tingling. Denies head injury or loss of conscious or other injury. Pain is mostly in the left shoulder over the left bicep. Has not taken any medication prior to arrival. Worse with movement. Better with rest. 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 10/06/20 Hx Cerebrovascular Accident: No Hx Seizures: No Review of Systems All Other Systems: negative except mentioned in HPI Physical Exam Vital Signs Date Time Temp Pulse Resp B/P (MAP) Pulse Ox O2 Delivery O2 Flow Rate FiO2 10/13/20 23:50 98.2 110 18 144/83 (103) 96 Room Air General: Awake and alert, appears uncomfortable HEENT: NC/AT. EOMI. Resp: Normal work of breathing Skin: Intact. No abrasions, laceration or rash over the exposed skin MSK: Normal tone and bulk. Moving all extremities. Palpable step-off over the left shoulder. Sensation over the deltoid intact. Able to flex and extend all digits as well as at the wrist and the left elbow without palpable deformity or pain. Neuro: Awake and alert. Mentating appropriately Procedures Joint Reduction Joint Reduction : Consent: Verbal Joint Reduction Site: shoulder (L) Procedural Sedation: Yes Reduction Attempts: One Pre-Procedure NV Exam: Yes Post-Procedure NV Exam: Yes Post Joint Reduction Film: joint reduced Patient Tolerated: Well Complications: None Medical Decision Making Diagnostic Impression: Primary Impression: Anterior shoulder dislocation Qualified Codes: S43.015A - Anterior dislocation of left humerus, initial encounter ER Course 30-year-old [id number]-[id number] female presents for evaluation of left shoulder pain after a fall. Concern for fracture dislocation. X-ray confirms anterior dislocation of the left shoulder without obvious fracture. Reduced with scapular manipulation on first attempt. Patient tolerated procedure well is neurologically intact at start and end of procedure. Shoulder immobilizer placed. Will refer to her PMD to discuss with orthopedic surgery regarding surgical options versus rehabilitation/strengthening. Instructed to return with new or worsening symptoms. She understands and agrees with this treatment plan. Other X-Ray Diagnostic Results Other X-Ray Diagnostic Results : X-Ray ordered: Left shoulder # of Views/Limited Vs Complete: 3 View Indication: Pain EP Interpretation: Yes Interpretation: no dislocation, no soft tissue swelling, no fractures, nonspecific bowel gas Impression: No acute disease Electronically Signed by: Electronically signed by Dr. Riky Mascorro MD Last Vital Signs Date Time Temp Pulse Resp B/P (MAP) Pulse Ox O2 Delivery O2 Flow Rate FiO2 10/13/20 23:50 98.2 110 18 144/83 (103) 96 Room Air Disposition: HOME, SELF-CARE Condition: Improved Riky Mascorro MD Oct 14, 2020 00:05
--- NOTE | 2020-10-14 00:57 | NUR ---
ER DISCHARGE NOTE: Patient is cleared to be discharged per ERMD, pt is aox4, on room air, with stable vital signs. pt was given dc instructions, pt was able to verbalize understanding, pt id band removed without complications. pt is able to ambulate with steady gait. pt took all belongings.
[2020-10-14 01:05] VITALS: BP 135/79
--- NOTE | 2020-10-14 12:48 | Diagnostic Imaging Report ---
EXAM: X-RAY XRAY Shoulder Compl L CLINICAL HISTORY: Shoulder pain. COMPARISON: None FINDINGS: Total of 4 views of the older were obtained. There is anterior dislocation of the left shoulder with the humeral head in a subcoracoid position. There is no fracture, bony lesions or erosions. AC joint is congruent. Surrounding soft tissue is normal. IMPRESSION: ANTERIOR DISLOCATION OF THE LEFT SHOULDER.
== END 2020-10-14 01:05 | disposition home or self-care (01) ==
LOC: EMR 10-14 00:12
DX: S43.005A Unspecified dislocation of left shoulder joint, initial encounter (principal); W01.0XXA Fall on same level from slipping, tripping and stumbling without subsequent striking against object, initial encounter; Y92.000 Kitchen of unspecified non-institutional (private) residence as the place of occurrence of the external cause
CPT/HCPCS: 99283